=== PATIENT | female | born 1965 | race Two or more races ===

== ENCOUNTER 2019-06-12 12:06 | Outpatient (CLI) | payer OTHER | END 2019-06-12 13:01 | disposition home or self-care (01) | LOC: MAMO-SONO 12:06 → SONOGRAMA 12:06 | DX: E04.1 Nontoxic single thyroid nodule (principal) ==

== ENCOUNTER 2020-06-09 12:50 | Outpatient (CLI) | payer OTHER | END 2020-06-09 13:07 | disposition home or self-care (01) | LOC: NUCLEAR 12:50 | DX: M81.0 Age-related osteoporosis without current pathological fracture (principal) ==

== ENCOUNTER 2020-09-03 12:34 | Outpatient (CLI) | payer OTHER | END 2020-09-03 14:01 | disposition home or self-care (01) | LOC: SONOGRAMA 12:34 | PROVIDERS: ATTEND Pathology Anatomic Pathology & Clinical Pathology | DX: R59.0 Localized enlarged lymph nodes (principal) ==

== ENCOUNTER 2021-04-30 18:27 | Emergency (ER) | payer OTHER ==
[~2021-04-30] VITALS: Ht 157.5 cm; Wt 45.4 kg
[2021-05-01] MEDS ORDERED: IVERMECTIN3 MG PO (00:31)
[2021-05-01] MEDS ORDERED: ZITHROMAX500 MG PO (00:31)
[2021-05-01] MEDS ORDERED: ACETAMINOPHEN500 M1 (00:39)
== END 2021-05-01 01:16 ==
LOC: ER 18:27
DX: U07.1 COVID-19 (principal)

== ENCOUNTER 2021-05-04 12:00 | Outpatient (CLI) | payer OTHER ==
[~2021-05-04 12:00] MED LIST: ACETAMINOPHEN500 M1; IVERMECTIN3 MG PO; ZITHROMAX500 MG PO
== END 2021-05-04 14:00 | disposition home or self-care (01) ==
LOC: ASH CLINIC 12:00
PROVIDERS: ATTEND General Practice
DX: Z23 Encounter for immunization (principal); U07.1 COVID-19

== ENCOUNTER 2023-12-23 19:46 | Emergency (ER) | payer OTHER ==
[~2023-12-23] VITALS: Ht 157.5 cm; Wt 56.2 kg
[2023-12-23] MEDS ORDERED: ENDOMETRIN100 MG (20:15)
[2023-12-23] MEDS ORDERED: ARMOUR THYROID120 M1 PO (20:16)
[2023-12-23] MEDS ORDERED: OxyCODONE HCL/APAP UD (PERCOCET) PO ONE (23:15)
[2023-12-23] MEDS ORDERED: MOBIC7.5 MG PO (23:32)
== END 2023-12-24 00:32 | disposition home or self-care (01) ==
LOC: ER 19:47
DX: S93.492A Sprain of other ligament of left ankle, initial encounter (principal); W10.8XXA Fall (on) (from) other stairs and steps, initial encounter; Y93.89 Activity, other specified; Y92.89 Other specified places as the place of occurrence of the external cause; Y99.8 Other external cause status; M12.572 Traumatic arthropathy, left ankle and foot; Z88.2 Allergy status to sulfonamides